=== PATIENT | female | born 1965 | race Caucasian/White ===

== ENCOUNTER 2018-01-14 16:22 | Emergency (ER) | payer OTHER ==
[~2018-01-14] VITALS: Ht 162.6 cm; Wt 98.4 kg
[2018-01-14] MEDS ORDERED: COZAAR25 MG (16:35)
[2018-01-14] MEDS ORDERED: SYNTHROID150 MCG (16:36)
[2018-01-14] MEDS ORDERED: RESTORIL30 M1 (16:36)
[2018-01-15] MEDS ORDERED: CIPRO500 MG PO (01:09)
[2018-01-15] MEDS ORDERED: ULTRACET PO (01:09)
[2018-01-15] MEDS ORDERED: FLAGYL500MG PO (01:09)
== END 2018-01-15 01:23 | disposition home or self-care (01) ==
LOC: ER 16:22
DX: K57.92 Diverticulitis of intestine, part unspecified, without perforation or abscess without bleeding (principal); R10.32 Left lower quadrant pain

== ENCOUNTER 2018-04-04 06:40 | Inpatient (IN) | payer OTHER ==
[~2018-04-04] VITALS: Ht 162.6 cm; Wt 98.9 kg
[~2018-04-04 06:40] MED LIST: ASPIR 8181 MG PO; BIOTIN10000 MCG PO; CIPRO500 MG PO; COZAAR25 MG; FLAGYL500MG PO; LIPITOR20 MG PO; PREMARIN1.25 MG PO; RESTORIL30 M1; SYNTHROID150 MCG; THERALITH XR T1 EACH PO; ULTRACET PO
[2018-04-05] MEDS ORDERED: OXYC1TAB9 PO (11:21)
[2018-04-05] MEDS ORDERED: NEURONTIN300 MG PO (11:21)
[2018-04-05] MEDS ORDERED: KETO10TA2 PO (11:22)
[2018-04-05] MEDS ORDERED: POLY119PG PO (11:23)
[2018-04-05] MEDS ORDERED: RECTICARE30 GM TOP (11:25)
== END 2018-04-05 13:18 | disposition home or self-care (01) | DRG 748 ==
LOC: CIR.AMB 06:40 → SURH 11:30 → EDSTATUS 11:30 → SURG 13:20 → O/R 13:20 → SURG 16:38
PROVIDERS: Surgery
PROC: 06LY0CC Occlusion of Hemorrhoidal Plexus with Extraluminal Device, Open Approach (ICD-10-PCS; 2018-04-04)
PROC: 3E0F7GC Introduction of Other Therapeutic Substance into Respiratory Tract, Via Natural or Artificial Opening (ICD-10-PCS; 2018-04-04)
PROC: 4A033R1 Measurement of Arterial Saturation, Peripheral, Percutaneous Approach (ICD-10-PCS; 2018-04-04)
PROC: 3E0T3BZ Introduction of Anesthetic Agent into Peripheral Nerves and Plexi, Percutaneous Approach (ICD-10-PCS; 2018-04-04)
PROC: 0JQC0ZZ Repair Pelvic Region Subcutaneous Tissue and Fascia, Open Approach (ICD-10-PCS; principal; 2018-04-04 07:00)
DX: N81.6 Rectocele (principal); K57.32 Diverticulitis of large intestine without perforation or abscess without bleeding; K64.8 Other hemorrhoids; K21.9 Gastro-esophageal reflux disease without esophagitis; K59.09 Other constipation; J44.9 Chronic obstructive pulmonary disease, unspecified; E78.4 Other hyperlipidemia; E03.8 Other specified hypothyroidism; K29.80 Duodenitis without bleeding

== ENCOUNTER 2018-04-19 19:09 | Inpatient (IN) | payer OTHER ==
[~2018-04-19] VITALS: Ht 162.6 cm; Wt 97.1 kg
[~2018-04-19 19:09] MED LIST changes: +KETO10TA2 PO; +NEURONTIN300 MG PO; +OXYC1TAB9 PO; +POLY119PG PO; +RECTICARE30 GM TOP
[2018-04-29] MEDS ORDERED: TYLENOL ARTHRI650 MG PO (12:43)
[2018-04-29] MEDS ORDERED: COLACE100 MG PO (12:43)
[2018-04-29] MEDS ORDERED: INTESTINEX680 M1 PO (12:43)
== END 2018-04-29 13:10 | disposition home or self-care (01) | DRG 348 ==
LOC: SURG 19:09 → SURH 19:09
PROVIDERS: Obstetrics & Gynecology Gynecology; Surgery
PROC: 0DJD8ZZ Inspection of Lower Intestinal Tract, Via Natural or Artificial Opening Endoscopic (ICD-10-PCS; 2018-04-23)
PROC: 3E0T3BZ Introduction of Anesthetic Agent into Peripheral Nerves and Plexi, Percutaneous Approach (ICD-10-PCS; 2018-04-23)
PROC: 0DJD7ZZ Inspection of Lower Intestinal Tract, Via Natural or Artificial Opening (ICD-10-PCS; 2018-04-23)
PROC: 0DQQ7ZZ Repair Anus, Via Natural or Artificial Opening (ICD-10-PCS; principal; 2018-04-23 09:00)
PROC: 0UJH7ZZ Inspection of Vagina and Cul-de-sac, Via Natural or Artificial Opening (ICD-10-PCS; 2018-04-23 09:00)
PROC: 3E0F7GC Introduction of Other Therapeutic Substance into Respiratory Tract, Via Natural or Artificial Opening (ICD-10-PCS; 2018-04-24)
DX: K62.5 Hemorrhage of anus and rectum (principal); T81.31XA Disruption of external operation (surgical) wound, not elsewhere classified, initial encounter; N81.6 Rectocele; E78.4 Other hyperlipidemia; J44.9 Chronic obstructive pulmonary disease, unspecified; E03.8 Other specified hypothyroidism; K21.9 Gastro-esophageal reflux disease without esophagitis; K57.30 Diverticulosis of large intestine without perforation or abscess without bleeding; K29.80 Duodenitis without bleeding; N93.8 Other specified abnormal uterine and vaginal bleeding; N81.11 Cystocele, midline; J45.998 Other asthma; I10 Essential (primary) hypertension; E66.8 Other obesity; K59.09 Other constipation; D50.0 Iron deficiency anemia secondary to blood loss (chronic)